=== PATIENT | female | born 1965 | race Caucasian/White ===

== ENCOUNTER 2017-05-02 19:15 | Emergency (ER) | payer OTHER ==
[~2017-05-02] VITALS: Ht 177.8 cm; Wt 86.2 kg
[~2017-05-02 19:15] MED LIST: ALBUTEROL SULF8.5 GM INH; BACTRIM DS TAB1 EACH PO; IBUPROFEN600 MG PO; IBUPROFEN800 MG PO; MELOXICAM15 MG PO; NORCO 5-325 TA1 EACH PO; PROAIR HFA8.5 GM INH; TRAMADOL HCL50 MG PO; ULTRAM50 MG PO
[2017-05-02] MEDS ORDERED: CYCLOBENZAPRINE10 MG PO (21:30)
[2017-05-02] MEDS ORDERED: IBUPROFEN600 MG PO (21:30)
== END 2017-05-02 22:01 | disposition home or self-care (01) ==
LOC: ED 19:15
DX: J44.9 Chronic obstructive pulmonary disease, unspecified (principal); J45.909 Unspecified asthma, uncomplicated; F17.200 Nicotine dependence, unspecified, uncomplicated; Z86.19 Personal history of other infectious and parasitic diseases; Z98.51 Tubal ligation status
CPT/HCPCS: 71101; 72040; 99283

== ENCOUNTER 2017-08-14 03:57 | Emergency (ER) | payer OTHER ==
[~2017-08-14] VITALS: Ht 177.8 cm; Wt 86.2 kg
[~2017-08-14 03:57] MED LIST changes: +CYCLOBENZAPRINE10 MG PO
== END 2017-08-14 05:05 | disposition home or self-care (01) ==
LOC: ED 03:57
DX: F15.10 Other stimulant abuse, uncomplicated (principal); J44.1 Chronic obstructive pulmonary disease with (acute) exacerbation; Z59.0 Homelessness; J45.909 Unspecified asthma, uncomplicated; F17.200 Nicotine dependence, unspecified, uncomplicated; Z98.51 Tubal ligation status
CPT/HCPCS: 99283

== ENCOUNTER 2018-02-17 05:18 | Emergency (ER) | payer OTHER ==
[~2018-02-17] VITALS: Ht 177.8 cm; Wt 79.4 kg
[2018-02-17] MEDS ORDERED: OMEPRAZOLE20 MG PO (06:47)
--- NOTE | 2018-02-17 16:02 | EKG ---
[facility] [address] [facility] [place], [place] [address] Signed Normal sinus rhythm Normal ECG No previous ECGs available Confirmed by FEMI MANCUSO MD ([id number]) on 02/17/2018 4:02:16 PM Electronically Signed By: FEMI MANCUSO MD 02/17/18 1602 PATIENT NAME: NELSON MAGANA Electrocardiogram DATE OF : 63 PHYSICIAN: FEMI MANCUSO MD REPORT #: [id number] REPORT IS CONFIDENTIAL AND NOT TO BE RELEASED WITHOUT AUTHORIZATION
== END 2018-02-17 07:05 | disposition home or self-care (01) ==
LOC: ED 05:18
DX: K31.89 Other diseases of stomach and duodenum (principal); J44.9 Chronic obstructive pulmonary disease, unspecified; J45.909 Unspecified asthma, uncomplicated; F31.9 Bipolar disorder, unspecified; F17.200 Nicotine dependence, unspecified, uncomplicated; Z79.899 Other long term (current) drug therapy
CPT/HCPCS: 71046; 80053; 81001; 83690; 85025; 93005; 93010; 96374; 99284

== ENCOUNTER 2019-07-06 13:18 | Emergency (ER) | payer OTHER ==
[~2019-07-06] VITALS: Ht 177.8 cm; Wt 79.8 kg
[~2019-07-06 13:18] MED LIST changes: +OMEPRAZOLE20 MG PO; +RANITIDINE HCL150 M1 PO
== END 2019-07-06 16:50 | disposition home or self-care (01) ==
LOC: ED 13:18
DX: M79.671 Pain in right foot (principal)

== ENCOUNTER 2019-11-23 18:11 | Emergency (ER) | payer OTHER ==
[~2019-11-23] VITALS: Ht 177.8 cm; Wt 79.8 kg
--- OUTSIDE RECORDS SUMMARY | 2019-11-23 18:14 | XMS ---
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 CRITERIA MET - [facility] - Has Care Guidelines CARE PROVIDERS WICHO CUI Nurse Practitioner: Family 07/10/2019-Current PHONE: Unknown Austyn Pike Primary Care Current PHONE: Unknown Priyanka has no Care Guidelines for this patient. Care History Medical/Surgical 07/10/2019 [facility] - Patient is currently established with [facility]. If patient is seen in the ED during business hours. Please contact CHWs at [facility]. Care Recommendation: This patient has had 5 or more Emergency Department visits in the last 12 months.\T\nbsp; Patient requires education on the scope and purpose of the ED as an acute care provider not a Primary Care Provider and should not be utilized for chronic conditions.\T\nbsp; These are guidelines and the provider should exercise clinical judgment when providing care. E.D. VISIT COUNT (12 MO.) 3 KARLI Joyce TOTAL 3 NOTE: Visits indicate total known visits. ED/UCC VISIT TRACKING (12 MO.) 11/23/2019 18:12 KARLI Stubbs [place] TYPE: Emergency COMPLAINT: - URINE PROBLEM 07/07/2019 17:41 KARLI Stubbs [place] TYPE: Emergency COMPLAINT: - FOOT PAIN, INJ DIAGNOSES: - Jump/div into swim pool strk surfc causing oth injury, init - Nicotine dependence, unspecified, uncomplicated - Pain in right ankle and joints of right foot - Sprain of unspecified ligament of right ankle, init encntr 07/06/2019 13:18 KARLI Stubbs [place] TYPE: Emergency COMPLAINT: - RIGHT FOOT PAIN DIAGNOSES: - Pain in right foot INPATIENT VISIT TRACKING (12 MO.) No inpatient visits to display in this time frame [email or web address]
[2019-11-24] MEDS ORDERED: KEFLEX500 MG PO (18:30)
== END 2019-11-23 19:38 | disposition left against medical advice (07) ==
LOC: ED 18:11
DX: Z53.21 Procedure and treatment not carried out due to patient leaving prior to being seen by health care provider (principal)

== ENCOUNTER 2019-11-24 17:28 | Emergency (ER) | payer OTHER ==
[~2019-11-24] VITALS: Ht 175.3 cm; Wt 79.8 kg
--- OUTSIDE RECORDS SUMMARY | 2019-11-24 17:32 | XMS ---
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 CRITERIA MET - [facility] - 2 Visits in 30 Days CARE PROVIDERS WICHO CUI Nurse Practitioner: Family 07/10/2019-Current PHONE: Unknown Austyn Pike Primary Care Current PHONE: Unknown Priyanka has no Care Guidelines for this patient. Care History Medical/Surgical 07/10/2019 [facility] - Patient is currently established with [facility]. If patient is seen in the ED during business hours. Please contact CHWs at [facility]. Care Recommendation: This patient has had 5 or more Emergency Department visits in the last 12 months.\T\nbsp; Patient requires education on the scope and purpose of the ED as an acute care provider not a Primary Care Provider and should not be utilized for chronic conditions.\T\nbsp; These are guidelines and the provider should exercise clinical judgment when providing care. Nita VISIT COUNT (12 MO.) 4 KARLI Joyce TOTAL 4 NOTE: Visits indicate total known visits. ED/UCC VISIT TRACKING (12 MO.) 11/24/2019 17:28 KARLI Stubbs OR TYPE: Emergency COMPLAINT: - URINATION PROBLEM 11/23/2019 18:12 KARLI Stubbs [place] TYPE: Emergency COMPLAINT: - URINE PROBLEM, LEFT WITHOUT BEING SEEN 07/07/2019 17:41 KARLI Stubbs [place] TYPE: Emergency [...] visits to display in this time frame [email or web address]
[2019-11-24] MEDS ORDERED: KEFLEX500 MG PO (18:30)
== END 2019-11-24 18:38 | disposition home or self-care (01) ==
LOC: ED 17:28
DX: N30.90 Cystitis, unspecified without hematuria (principal); J44.9 Chronic obstructive pulmonary disease, unspecified; F31.9 Bipolar disorder, unspecified; F17.200 Nicotine dependence, unspecified, uncomplicated; Z79.899 Other long term (current) drug therapy
CPT/HCPCS: 81001; 87077; 87088; 87186; 99283-25; 99406; A9270

== ENCOUNTER 2022-10-02 06:20 | Day surgery (SDC) | payer MEDICARE, OTHER ==
[~2022-10-02] VITALS: Ht 175.3 cm; Wt 67.7 kg
[~2022-10-02 06:20] MED LIST changes: +KEFLEX500 MG PO; +ONDANSETRON ODT8 MG PO; +PROTONIX20 MG PO; +ZESTRIL20 MG PO
--- NOTE | 2022-10-02 07:08 | NUR ---
VAMPER IN TO SEE PT. ORDERED NEB TX NOW AND GIVEN.
--- NOTE | 2022-10-02 08:06 | NUR ---
10/02/22 0806 Celena Meyer 0755- PT ARRIVES TO PACU AWAKE AND TALKING. PT APPEARS CONFUSED AND STATES, "WHERE AM I?". PT UPDATED THAT HER PROCEDURE IS OVER AND SHE IS IN THE RECOVERY ROOM. PT NODS. PT COUGHING PERIODICALLY. PT HAS A HX OF COPD. 0758- PT WANTING HER NC OFF. PT PICKING AT THE NC. NC REMOVED. OXYGEN SAT HIGH 90'S TO 100%.
--- NOTE | 2022-10-02 08:37 | OR ---
[facility] [address] [place], [place] [address] Signed DATE OF OPERATION: 10/02/2022 SURGEON: Alexandra Estrada MD PREOPERATIVE DIAGNOSES: 1. Personal history of colonic polyps in 2018 at age of 52. 2. Chronic diarrhea. 3. Diverticulosis. 4. Internal and external hemorrhoids. 5. CT scan of the abdomen and pelvis in July 2022 with thickening of the distal left colon and proximal sigmoid colon. 6. Possible history of celiac sprue, although never biopsy-proven. POSTOPERATIVE DIAGNOSES: 1. Minimal sigmoid diverticulosis. 2. Minimal to moderate internal and external hemorrhoids. 3. 7 mm polyp at 75 cm. 4. 8 mm sessile polyp at hepatic flexure. 5. 5 mm polyp at 85 cm. 6. 5 mm polyp at 55 cm. PROCEDURE: Colonoscopy with hot biopsies and cold biopsies of the left and sigmoid colon. ESTIMATED BLOOD LOSS: None. INDICATIONS: Nelson is a 57-year-old female, who had been asked to see me for followup colonoscopy. I helped her with upper and lower endoscopy back in 2018 at the age of 52. She has a long history of epigastric abdominal pain with a hiatal hernia and esophageal dysphagia. We found just a very small hiatal hernia, gastritis and a negative CLOtest. She has a long history of chronic watery and yellowish green colored diarrhea. We found that she had diverticulosis along with internal and external hemorrhoids. She also had three tubular adenomatous polyps removed as well as a hyperplastic polyp. We asked her to follow up in 5 years. She went to see her dietary internship, Dr. Thor Giron for upper endoscopy in 2018. Again, biopsies from the esophagus were unremarkable and little bit of mild gastritis. She then had a repeat upper endoscopy with that same GI group in March of [address] Espinoza. Biopsies were again unremarkable. She had minimal esophagitis associated with the acid reflux. In July of this year, she had a CT scan Electronically Signed By: ALEXANDRA ESTRADA MD 10/02/22 0837 PATIENT NAME: NELSON MAGANA OPERATIVE REPORT DATE OF : 63 REPORT #: [id number] PHYSICIAN: ALEXANDRA ESTRADA MD PCP: NESS ELLIS PAC REPORT IS CONFIDENTIAL AND NOT TO BE RELEASED WITHOUT AUTHORIZATION [facility] [address] [place], [place] [address] Signed performed. There was some mild thickening to the distal left colon and sigmoid colon. The GI group has been in transition. Therefore, she was asked to see me locally as a general surgeon to help expedite her colonoscopy with biopsies. She gives no left lower quadrant abdominal pain. In the office, I had given her a pamphlet on colonoscopy. We had reviewed the nature of the test. She understands there is risk including, but not limited to gas bloating, crampy abdominal pain, bleeding, perforation requiring surgery, and missed diagnosis. She has a long history of chronic hepatitis C virus, asthma, COPD, methamphetamine abuse, daily marijuana use and daily alcohol use. Therefore, she requires monitored anesthesia care as she did in the past. She had expressed understanding and wished to proceed. PROCEDURE NOTE: Nelson was taken into our endoscopy suite and placed in the left lateral decubitus position. She was given monitored anesthesia care per our nurse pharmacy clerk with not only propofol but ketamine and Versed as well. It took a while to get her sedated enough to pass the scope. A digital rectal exam was performed and she does have some external hemorrhoids. She has good sphincter tone. There were no masses. The adult colonoscope was introduced and advanced under direct visualization of the camera up into the cecum itself. Her prep was good. We could easily see the appendiceal orifice and the ileocecal valve. The scope was then slowly withdrawn. We took several pictures throughout for photodocumentation. The above-mentioned polyps were removed with the help of hot biopsy forceps. We did see just a few diverticula in the sigmoid colon. No obvious inflammatory changes throughout the entire colon or rectum. We went ahead and took some random cold biopsies through the distal left colon and the sigmoid colon. Once in the rectum, the scope was retroflexed and she does have moderate internal hemorrhoids as well. After this, the gas suctioned out and the colonoscope removed. Nelson tolerated the procedure quite well. RECOMMENDATIONS: I will see Nelson back in my office in 7 to 14 days to review her results. Alexandra Estrada MD ALB/MODL /[id number] Electronically Signed By: ALEXANDRA ESTRADA MD 10/02/22 0837 PATIENT NAME: NELSON MAGANA OPERATIVE REPORT DATE OF : 63 REPORT #: [id number] PHYSICIAN: ALEXANDRA ESTRADA MD PCP: NESS ELLIS PAC REPORT IS CONFIDENTIAL AND NOT TO BE RELEASED WITHOUT AUTHORIZATION [facility] [address] [place], [place] [address] Signed cc: MD Ness Jung PA-C Copies: ALEXANDRA ESTRADA MD, ERIKA PAC ~ Electronically Signed By: ALEXANDRA ESTRADA MD 10/02/22 0837 PATIENT NAME: NELSON MAGANA OPERATIVE REPORT DATE OF : 63 REPORT #: [id number] PHYSICIAN: ALEXANDRA ESTRADA MD PCP: NESS ELLIS REPORT IS CONFIDENTIAL AND NOT TO BE RELEASED WITHOUT AUTHORIZATION
--- NOTE | 2022-10-08 18:45 | PATH ---
[facility] [address] [facility] [place], [place] [address] Signed SPECIMEN(S): A COLON POLYP AT 75 CM SPECIMEN(S): B HEPATIC FLEXURE POLYP SPECIMEN(S): C COLON POLYP AT 85 CM SPECIMEN(S): D COLON POLYP AT 55 CM SPECIMEN(S): E RANDOM SIGMOID BX SPECIMEN SOURCE: A. COLON POLYP AT 75 CM B. HEPATIC FLEXURE POLYP C. COLON POLYP AT 85 CM D. COLON POLYP AT 55 CM E. RANDOM SIGMOID BX CLINICAL HISTORY: Pre-op: Diarrhea, diverticulosis, polyps 2018. Post-op: Diverticulosis, polyps. FINAL PATHOLOGIC DIAGNOSIS: A. Colon, 75 cm, polypectomy: - Multiple fragments of tubular adenoma. - There is no evidence of high-grade dysplasia or malignancy. B. Colon, hepatic flexure, polypectomy: - Tubular adenoma, one fragment. - An additional fragment of colonic epithelium is within normal limits. - There is no evidence of high-grade dysplasia or malignancy. C. Colon, 85 cm, polypectomy: - No significant histopathology. - There is no evidence of neoplasia. D. Colon, 55 cm, polypectomy: - Tubular adenoma. - There is no evidence of high-grade dysplasia or malignancy. E. Colon, sigmoid, random biopsies: - No significant histopathology. COMMENT: Regarding specimen C, the sections from the specimen are architecturally normal without crypt distortion. There is no acute or chronic inflammation. There are no abnormal infiltrates. There is no evidence of inflammatory, hyperplastic or adenomatous polyps. Regarding specimen E, the sections from the specimen contain architecturally normal colonic mucosa without crypt distortion. There is no acute or chronic PATIENT NAME: NELSON MAGANA PATHOLOGY DATE OF : 63 REPORT #: [id number] PHYSICIAN: SIMRAN OROZCO PCP: MARY ELLIS PAC REPORT IS CONFIDENTIAL AND NOT TO BE RELEASED WITHOUT AUTHORIZATION [facility] [address] [place], [place] [address] Signed inflammation. There is no evidence of microscopic colitis. There are no abnormal organisms or infiltrates. There are no polyps or neoplasms. TWK:troy:C2NR MICROSCOPIC EXAMINATION: Histologic sections of all submitted blocks are examined by light microscopy. These findings, together with the gross examination, support the pathologic diagnosis. GROSS DESCRIPTION: A. The specimen, labeled and designated "Slusser, colon polyp at 75 cm," is received in formalin and consists of two caceres soft tissue fragments, ranging from 0.1 to 0.2 cm. Entirely submitted in (A1). B. The specimen, labeled and designated "Slusser, hepatic flexure polyp," is received in formalin and consists of two caceres soft tissue fragments, measuring 0.1 cm in greatest dimension. Entirely submitted in (B1). C. The specimen, labeled and designated "Slusser, colon polyp at 85 cm," is received in formalin and consists of one caceres soft tissue fragment measuring 0.2 cm. Entirely submitted in (C1). D. The specimen, labeled and designated "Slusser, colon polyp at 55 cm," is received in formalin and consists of one caceres soft tissue fragment that measures 0.2 cm. Entirely submitted in (D1). E. The specimen, labeled and designated "Slaustiner, random sigmoid biopsy," is received in formalin and consists of three caceres soft tissue fragments, ranging from 0.1 to 0.2 cm. Entirely submitted in (E1). JS (under the direct supervision of a pathologist) The Gross Description was prepared using a voice recognition system. The report was reviewed for accuracy; however, sound-alike word errors, addition and/or deletions may occur. If there is any question about this report, please contact Client Services. PERFORMING LABORATORY: The technical component was performed by [facility], [address] [place] [id number] (CLIA# [id number]). The professional interpretation was performed by [facility], [facility], [facility] [place] [address] [address] (CLIA#: [id number]). PATIENT NAME: NELSON MAGANA PATHOLOGY DATE OF : 63 REPORT #: [id number] PHYSICIAN: SIMRAN OROZCO PCP: MARY ELLIS PAC REPORT IS CONFIDENTIAL AND NOT TO BE RELEASED WITHOUT AUTHORIZATION [address] [address] Signed Diagnostician: Diogenes Arroyo MD Pathologist Electronically Signed 10/08/2022 Copies: ~ PATIENT NAME: NELSON MAGANA PATHOLOGY DATE OF : 63 REPORT #: [id number] PHYSICIAN: SIMRAN PATHOLOGY PCP: MARY ELLIS PAC REPORT IS CONFIDENTIAL AND NOT TO BE RELEASED WITHOUT AUTHORIZATION
== END 2022-10-02 08:32 | disposition home or self-care (01) ==
LOC: DS 06:20
PROVIDERS: ATTEND Colon & Rectal Surgery
PROC: 0DBL8ZX Excision of Transverse Colon, Via Natural or Artificial Opening Endoscopic, Diagnostic (ICD-10-PCS; 2022-10-02)
PROC: 0DBN8ZX Excision of Sigmoid Colon, Via Natural or Artificial Opening Endoscopic, Diagnostic (ICD-10-PCS; 2022-10-02)
PROC: 0DBM8ZX Excision of Descending Colon, Via Natural or Artificial Opening Endoscopic, Diagnostic (ICD-10-PCS; principal; 2022-10-02 07:30)
DX: D12.3 Benign neoplasm of transverse colon (principal); K52.9 Noninfective gastroenteritis and colitis, unspecified; K57.30 Diverticulosis of large intestine without perforation or abscess without bleeding; K64.8 Other hemorrhoids; K64.4 Residual hemorrhoidal skin tags; K63.5 Polyp of colon; F17.200 Nicotine dependence, unspecified, uncomplicated
CPT/HCPCS: 00811; 88305; J2250; J2704; J7121

== ENCOUNTER 2025-08-29 12:50 | Emergency (ER) | payer MEDICARE, OTHER ==
[~2025-08-29] VITALS: Ht 175.3 cm; Wt 64.9 kg
[2025-08-29 13:14] LABS: BASOPHILS 0.5 % (0.1-1.2); EOSINOPHILS 0.5 % (0.7-5.8); LYMPHOCYTES 36.4 % (19.3-51.7); MCH 34.2 PG (25.6-32.2); MCHC 35.7 g/dL (32.2-35.5); MCV 95.7 fL (79.4-94.8); MONOCYTES 12.4 % (4.7-12.5); NEUTROPHILS 49.9 % (34.0-71.1); RBC 3.48 M/uL (3.93-5.22)
[2025-08-29 13:30] LABS: ALT (SGPT) 16.0 U/L (14-59); AST (SGOT) 50.0 U/L (15-37); GLOMERULAR FILTRATION RATE,EST 92.0 mL/min (>60); PROTEIN, TOTAL 6.8 g/dL (6.4-8.2); UREA NITROGEN 8.0 mg/dL (7-18)
[2025-08-29] MEDS ORDERED: POTASSIUM CHLORIDE 20 MEQ/15 ML CUP PO ONE (13:45)
[2025-08-29] MEDS ORDERED: POTASSIUM CHLORIDE 10 MEQ/100 ML BAG IV SCH (13:45)
[2025-08-29] MEDS ORDERED: MAGNESIUM SULFATE 4 GM/100 ML BAG IV ONE (13:45)
[2025-08-29 16:16] LABS: GLOMERULAR FILTRATION RATE,EST 95.0 mL/min (>60); UREA NITROGEN 7.0 mg/dL (7-18)
[2025-08-29] MEDS ORDERED: POTASSIUM40 MEQ/15 PO (16:48)
[2025-08-29] MEDS ORDERED: MAGNESIUM400 M1 PO (16:48)
[2025-08-29 17:00] VITALS: BP 125/70
--- NOTE | 2025-08-29 21:53 | EKG ---
[facility] [address] [facility] [place] [facility] [place] [address] Signed Sinus rhythm with marked sinus arrhythmia Nonspecific ST abnormality Abnormal ECG When compared with ECG of 08-SEP-2022 11:33, No significant change was found Confirmed by Florentin Sahu MD () on 08/29/2025 9:53:29 PM Electronically Signed By: FLORENTIN SAHU MD 08/29/252152 PATIENT NAME: NELSON MAGANA Electrocardiogram DATE OF : 63 PHYSICIAN: FLORENTIN SAHU MD REPORT #: [id number] REPORT IS CONFIDENTIAL AND NOT TO BE RELEASED WITHOUT AUTHORIZATION
== END 2025-08-29 17:03 | disposition home or self-care (01) ==
LOC: ED 12:50
PROVIDERS: Emergency Medicine
DX: E87.6 Hypokalemia (principal); E83.42 Hypomagnesemia; J44.89 Other specified chronic obstructive pulmonary disease; J43.9 Emphysema, unspecified; F17.200 Nicotine dependence, unspecified, uncomplicated; Z79.899 Other long term (current) drug therapy
CPT/HCPCS: 36415; 80048; 80053; 83735; 85025; 93005; 93010; 96365; 96366; 96368; 99283-25; A9270; J3475; J3480